=== PATIENT | female | born 1940 | race Caucasian/White ===

== ENCOUNTER 2021-07-09 01:44 | Emergency (ER) | END 2021-07-09 05:04 | LOC: ERS 01:44 | DX: E11.649 Type 2 diabetes mellitus with hypoglycemia without coma (principal); I12.9 Hypertensive chronic kidney disease with stage 1 through stage 4 chronic kidney disease, or unspecified chronic kidney disease; N18.30 Chronic kidney disease, stage 3 unspecified; E11.22 Type 2 diabetes mellitus with diabetic chronic kidney disease; E78.5 Hyperlipidemia, unspecified | CPT/HCPCS: 36416; 99285 ==

== ENCOUNTER 2021-07-09 18:36 | Observation (INO) | payer MEDICARE ==
[2021-07-09 19:28] LABS: #Eosinphils 0.2 thou/uL (0.0-0.7); #Monocytes 0.6 thou/uL (0.11-0.59); %Eosinophils 1.8 % (0.0-10.0); %Lymphocytes 9.5 % (21.0-51.0); %Monocytes 5.4 % (0.0-10.0); %Neutrophils 83.3 % (42.0-75.0); Hemoglobin 13.3 g/dL (12.0-16.0); Mean Corpuscular HGB CONC 33.7 g/dL (32.0-36.0); Mean Corpuscular Hemoglobin 29.4 pg (27.0-31.0); Mean Corpuscular Volume 87.4 fL (78.0-98.0); Mean Platelet Volume 9.2 fL (7.4-10.4); Platelet Count 294 thou/uL (130-400); RBC Distribution Width 13.5 % (11.5-14.5); Red Blood Cell (RBC) Count 4.51 mill/uL (4.20-5.40); White Blood Cell (WBC) Count 10.8 thou/uL (4.8-10.8)
[2021-07-09 19:46] LABS: ALT (SGPT) 10 U/L (8-55); AST (SGOT) 11 U/L (5-34); Albumin 2.4 g/dL (3.4-4.8); Alkaline Phosphatase 90 U/L (40-110); Anion Gap 11 mmol/L (10-20); BUN (Urea Nitrogen) 24 mg/dL (9.8-20.1); Bilirubin, Total 0.4 mg/dL (0.2-1.2); Calc. Creatinine Clearance 0 mL/min (70-130); Calcium 8.3 mg/dL (7.8-10.44); Carbon Dioxide 31 mmol/L (23-31); Chloride 100 mmol/L (98-107); Globulin 3.5 g/dL (2.4-3.5); Glucose 104 mg/dL (83-110); Potassium 3.2 mmol/L (3.5-5.1); Protein, Total 5.9 g/dL (5.8-8.1); Sodium 139 mmol/L (136-145)
[2021-07-09] MEDS ORDERED: Dextrose 50% Abboject 50 ML SYRINGE ONE (22:24)
[2021-07-09 22:33] LABS: Lactic Acid 0.9 mmol/L (0.5-2.2)
[2021-07-10 00:59] LABS: SARS-CoV-2 NAA Rapid Test DETECTED (NotDetected)
[2021-07-10] MEDS ORDERED: Ondansetron PF 4 MG/2 ML Vial IVP PRN (02:51)
[2021-07-10] MEDS ORDERED: HumaLOG 300 UNITS/3 ML VIAL SC PRN ×4 (02:51→12:17)
[2021-07-10] MEDS ORDERED: Ondansetron ODT 4 MG TAB PO PRN (02:51)
[2021-07-10] MEDS ORDERED: Dextrose 5% in Water 1,000 ML IV PRN ×2 (02:51→12:17)
[2021-07-10] MEDS ORDERED: Dextrose 50% Abboject 50 ML SYRINGE SLOW IVP PRN ×2 (02:51→12:17)
[2021-07-10] MEDS ORDERED: Acetaminophen 650 MG Suppository PR PRN (02:51)
[2021-07-10] MEDS ORDERED: Potassium Chloride 20 MEQ TAB PO SCH ×2 (04:15→10:00)
[2021-07-10] MEDS ORDERED: Dextrose 5% in Water 1,000 ML IV SCH (05:00)
[2021-07-10 05:23] LABS: #Eosinphils 0.2 thou/uL (0.0-0.7); #Lymphocytes 1.8 thou/uL (1.20-3.40); #Monocytes 0.6 thou/uL (0.11-0.59); %Basophils 0.5 % (0.0-1.0); %Eosinophils 2.4 % (0.0-10.0); %Lymphocytes 23.9 % (21.0-51.0); %Monocytes 8.4 % (0.0-10.0); %Neutrophils 64.8 % (42.0-75.0); Hemoglobin 13.3 g/dL (12.0-16.0); Mean Corpuscular HGB CONC 33.4 g/dL (32.0-36.0); Mean Corpuscular Hemoglobin 29.3 pg (27.0-31.0); Mean Corpuscular Volume 87.8 fL (78.0-98.0); Platelet Count 264 thou/uL (130-400); RBC Distribution Width 13.6 % (11.5-14.5); Red Blood Cell (RBC) Count 4.55 mill/uL (4.20-5.40); White Blood Cell (WBC) Count 7.7 thou/uL (4.8-10.8)
[2021-07-10] MEDS ORDERED: Activated Charcoal/Sorbitol 25 GM/120 ML TUBE ONE (05:44)
[2021-07-10] MEDS ORDERED: Potassium Chloride 20 MEQ TAB ONE (05:44)
[2021-07-10 06:37] LABS: Anion Gap 9 mmol/L (10-20); BUN (Urea Nitrogen) 24 mg/dL (9.8-20.1); Calc. Creatinine Clearance 0 mL/min (70-130); Calcium 8.2 mg/dL (7.8-10.44); Carbon Dioxide 30 mmol/L (23-31); Chloride 104 mmol/L (98-107); Glucose 118 mg/dL (83-110); Sodium 140 mmol/L (136-145)
[2021-07-10] MEDS ORDERED: Dextrose 50% Abboject 50 ML SYRINGE ONE (07:47)
[2021-07-10 08:37] LABS: Magnesium 1.8 mg/dL (1.6-2.6)
[2021-07-10] MEDS ORDERED: Potassium Chloride 20 MEQ in Premix Bag 1 BAG IVPB SCH (09:15)
[2021-07-10 09:47] VITALS: BMI 24.5
[2021-07-10] MEDS: Potassium Chloride 10 MEQ in Premix Bag 1 BAG IVPB SCH ×3 (10:36→12:03)
[2021-07-10] MEDS ORDERED: hydrALAZINE 20 MG/ML VIAL SLOW IVP PRN (12:16)
[2021-07-10] MEDS: Acetaminophen 325 MG TAB PO PRN (13:22)
[2021-07-10 13:23] LABS: Hemoglobin A1c 6.9 % (4.0-6.0)
[2021-07-10] MEDS ORDERED: Lorazepam 0.5 MG TAB PO PRN (13:33)
[2021-07-10] MEDS ORDERED: Aspirin 81 mg Enteric Coated Tablet PO SCH (13:45)
[2021-07-10] MEDS ORDERED: Ascorbic Acid 500 mg Chewable Tablet PO SCH (13:45)
[2021-07-10] MEDS ORDERED: FLUoxetine HCl 20 MG CAP PO SCH (14:00)
[2021-07-10] MEDS ORDERED: Carvedilol 6.25 MG TAB PO SCH (14:00)
[2021-07-10] MEDS ORDERED: Cholecalciferol (Vitamin D3) 400 UNITS TAB PO SCH (14:00)
[2021-07-10] MEDS ORDERED: Losartan 25 MG TAB PO SCH (14:00)
[2021-07-10] MEDS ORDERED: guaiFENesin ER 600 MG TAB PO SCH (14:00)
[2021-07-10] MEDS ORDERED: Zinc Sulfate 220 MG CAP PO SCH (14:00)
[2021-07-10] MEDS ORDERED: Furosemide 40 MG TAB PO SCH (14:00)
[2021-07-10] MEDS: rOPINIRole HCl 0.25 MG TAB PO SCH ×2 (15:25→20:02)
[2021-07-10] MEDS: guaiFENesin ER 600 MG TAB PO SCH (20:01)
[2021-07-10] MEDS: Carvedilol 6.25 MG TAB PO SCH (20:01)
[2021-07-10] MEDS: Losartan 25 MG TAB PO SCH (20:01)
[2021-07-10] MEDS: Ascorbic Acid 500 mg Chewable Tablet PO SCH (20:02)
[2021-07-10] MEDS ORDERED: Atorvastatin Calcium 10 MG TAB PO SCH (21:00)
[2021-07-10] MEDS ORDERED: Melatonin 3 MG TAB PO SCH (21:00)
[2021-07-10] MEDS ORDERED: Amino Acids/Protein Hydrolys [Pro-Stat 64 Liquid] 30 ML Packet PO SCH (21:00)
[2021-07-11 05:36] LABS: Anion Gap 8 mmol/L (10-20); BUN (Urea Nitrogen) 18 mg/dL (9.8-20.1); Calc. Creatinine Clearance 36 mL/min (70-130); Calcium 7.8 mg/dL (7.8-10.44); Carbon Dioxide 31 mmol/L (23-31); Chloride 104 mmol/L (98-107); Glucose 118 mg/dL (83-110); Potassium 4.2 mmol/L (3.5-5.1); Sodium 139 mmol/L (136-145)
[2021-07-11] MEDS ORDERED: Ergocalciferol 1.25 MG(50,000 UNITS) CAP PO SCH (09:00)
[2021-07-11] MEDS: Losartan 25 MG TAB PO SCH ×2 (10:22→11:30)
[2021-07-11] MEDS: Cholecalciferol (Vitamin D3) 400 UNITS TAB PO SCH ×2 (10:22→11:30)
[2021-07-11] MEDS: Ascorbic Acid 500 mg Chewable Tablet PO SCH ×2 (10:22→11:30)
[2021-07-11] MEDS: Aspirin 81 mg Enteric Coated Tablet PO SCH ×2 (10:23→11:30)
[2021-07-11] MEDS: Carvedilol 6.25 MG TAB PO SCH (10:23)
[2021-07-11] MEDS: FLUoxetine HCl 20 MG CAP PO SCH ×2 (10:24→11:30)
[2021-07-11] MEDS: Furosemide 40 MG TAB PO SCH ×2 (10:25→11:30)
[2021-07-11] MEDS: guaiFENesin ER 600 MG TAB PO SCH (10:25)
[2021-07-11] MEDS: rOPINIRole HCl 0.25 MG TAB PO SCH ×3 (10:26→15:19)
[2021-07-11] MEDS: Zinc Sulfate 220 MG CAP PO SCH ×2 (10:26→11:30)
[2021-07-11] MEDS: Acetaminophen 325 MG TAB PO PRN (15:19)
[2021-07-11 15:42] VITALS: BP 178/75; TEMP 98.9
== END 2021-07-11 18:40 ==
LOC: ERS 18:36 → ERHOLD 23:15 → 2SE 07-10 09:12 → 2SW 07-11 00:50
PROVIDERS: ADMIT Student in an Organized Health Care Education/Training Program; ATTEND Internal Medicine
DX: E11.649 Type 2 diabetes mellitus with hypoglycemia without coma (principal); U07.1 COVID-19; I12.9 Hypertensive chronic kidney disease with stage 1 through stage 4 chronic kidney disease, or unspecified chronic kidney disease; E11.22 Type 2 diabetes mellitus with diabetic chronic kidney disease; N18.30 Chronic kidney disease, stage 3 unspecified; E78.5 Hyperlipidemia, unspecified; E87.6 Hypokalemia; M51.36 Other intervertebral disc degeneration, lumbar region; Z79.4 Long term (current) use of insulin; Z79.82 Long term (current) use of aspirin; Z79.899 Other long term (current) drug therapy; Z88.1 Allergy status to other antibiotic agents
CPT/HCPCS: 71045; 80048 ×2; 80053; 82962 ×3; 83036; 83605; 83735; 84484; 85025 ×2; 93005; 94760; 96374; 99285; U0002; 36415; 36416; 96376; G0378; J1815; J3480; J7070

== ENCOUNTER 2022-01-26 13:26 | Inpatient (IN) | payer MEDICARE ==
[2022-01-26 14:04] LABS: #Eosinphils 0.4 thou/uL (0.0-0.7); #Lymphocytes 1.5 thou/uL (1.20-3.40); #Monocytes 0.4 thou/uL (0.11-0.59); #Neutrophils 6.5 thou/uL (1.40-6.50); %Basophils 0.2 % (0.0-1.0); %Eosinophils 4.3 % (0.0-10.0); %Lymphocytes 16.6 % (21.0-51.0); %Monocytes 4.9 % (0.0-10.0); Hemoglobin 13.3 g/dL (12.0-16.0); Mean Corpuscular HGB CONC 33.1 g/dL (32.0-36.0); Mean Corpuscular Hemoglobin 29.4 pg (27.0-31.0); Mean Corpuscular Volume 88.7 fL (78.0-98.0); Mean Platelet Volume 8.1 fL (7.4-10.4); Platelet Count 285 thou/uL (130-400); RBC Distribution Width 14.4 % (11.5-14.5); Red Blood Cell (RBC) Count 4.52 mill/uL (4.20-5.40); White Blood Cell (WBC) Count 8.8 thou/uL (4.8-10.8)
[2022-01-26 14:13] LABS: Bilirubin Negative (Negative); Blood, Urine Negative (Negative); Clarity Clear (Clear); Glucose, Urine (Dipstick) 30 mg/dL (Negative); Ketone, Urine Negative (Negative); Leukocyte Negative Leu/uL (Negative); Nitrite Negative (Negative); Protein, Urine (Dipstick) 300 mg/dL (Neg-Trace); RBC/HPF 0-3 HPF (0-3); Specific Gravity, Urine 1.013 (1.002-1.036); Squamous Epithelial 0-3 HPF (0-3); Urobilinogen Normal mg/dL (Less than 2); WBC/HPF 0-3 HPF (0-3); pH, Urine 6.5 (5.0-9.0)
[2022-01-26 14:14] LABS: Bacteria/HPF Rare-Few HPF (None Seen)
[2022-01-26 14:15] LABS: Prothrombin Time 13.3 sec (12.0-14.7)
[2022-01-26] MEDS ORDERED: Cefepime 2 GM VIAL ONE (15:25)
[2022-01-26] MEDS ORDERED: Vancomycin 1 GM/200 ML BAG ONE (16:05)
[2022-01-26 16:06] LABS: ALT (SGPT) 13 U/L (8-55); AST (SGOT) 18 U/L (5-34); Albumin 2.6 g/dL (3.4-4.8); Alkaline Phosphatase 64 U/L (40-110); Anion Gap 11 mmol/L (10-20); BUN (Urea Nitrogen) 17 mg/dL (9.8-20.1); Bilirubin, Total 0.4 mg/dL (0.2-1.2); Calc. Creatinine Clearance 0 mL/min (70-130); Carbon Dioxide 29 mmol/L (23-31); Chloride 105 mmol/L (98-107); Estimated GFR 42; Globulin 2.9 g/dL (2.4-3.5); Glucose 136 mg/dL (83-110); Protein, Total 5.5 g/dL (5.8-8.1); Sodium 142 mmol/L (136-145)
[2022-01-26 16:07] LABS: Potassium 2.9 mmol/L (3.5-5.1)
[2022-01-26] MEDS ORDERED: Dextrose 5% in Water 1,000 ML IV PRN (16:34)
[2022-01-26] MEDS ORDERED: Dextrose 50% Abboject 50 ML SYRINGE SLOW IVP PRN (16:34)
[2022-01-26] MEDS ORDERED: Ondansetron ODT 4 MG TAB PO PRN (16:35)
[2022-01-26] MEDS ORDERED: Senokot S 8.6-50 MG TAB PO PRN (16:35)
[2022-01-26] MEDS ORDERED: Ondansetron PF 4 MG/2 ML Vial IVP PRN (16:35)
[2022-01-26] MEDS ORDERED: Acetaminophen 325 MG TAB PO PRN (16:35)
[2022-01-26 17:25] VITALS: BMI 25.6
[2022-01-26 17:30] LABS: Magnesium 1.8 mg/dL (1.6-2.6)
[2022-01-26] MEDS ORDERED: Potassium Chloride 20 MEQ TAB PO ONE (17:41)
[2022-01-26 18:55] LABS: SARS-CoV-2 NAA Rapid Test Not Detected (NotDetected)
[2022-01-26 18:56] LABS: Potassium 2.9 mmol/L (3.5-5.1)
[2022-01-26] MEDS: Sodium Chloride 0.9% 1,000 ML IV SCH (19:04)
[2022-01-26] MEDS: Potassium Chloride 20 MEQ in Premix Bag 1 BAG IVPB SCH ×2 (19:05→20:09)
[2022-01-26 19:15] LABS: Hemoglobin A1c 7.9 % (4.0-6.0)
[2022-01-26] MEDS ORDERED: Potassium Chloride 20 MEQ TAB PO SCH (20:15)
[2022-01-26] MEDS ORDERED: Enoxaparin Sodium 40 MG/0.4 ML SYRINGE SC SCH (21:00)
[2022-01-27] MEDS: Sodium Chloride 0.9% 1,000 ML IV SCH (06:12)
[2022-01-27 06:30] LABS: #Eosinphils 0.3 thou/uL (0.0-0.7); #Lymphocytes 1.6 thou/uL (1.20-3.40); #Monocytes 0.6 thou/uL (0.11-0.59); #Neutrophils 4.7 thou/uL (1.40-6.50); %Basophils 0.6 % (0.0-1.0); %Eosinophils 3.5 % (0.0-10.0); %Lymphocytes 21.5 % (21.0-51.0); %Monocytes 8.9 % (0.0-10.0); %Neutrophils 65.5 % (42.0-75.0); Hemoglobin 11.4 g/dL (12.0-16.0); Mean Corpuscular HGB CONC 32.9 g/dL (32.0-36.0); Mean Corpuscular Hemoglobin 29.5 pg (27.0-31.0); Mean Corpuscular Volume 89.6 fL (78.0-98.0); Mean Platelet Volume 8.3 fL (7.4-10.4); Platelet Count 253 thou/uL (130-400); RBC Distribution Width 14.4 % (11.5-14.5); Red Blood Cell (RBC) Count 3.87 mill/uL (4.20-5.40); White Blood Cell (WBC) Count 7.2 thou/uL (4.8-10.8)
[2022-01-27 07:00] LABS: Anion Gap 11 mmol/L (10-20); BUN (Urea Nitrogen) 22 mg/dL (9.8-20.1); Calc. Creatinine Clearance 32 mL/min (70-130); Calcium 7.5 mg/dL (7.8-10.44); Carbon Dioxide 24 mmol/L (23-31); Chloride 105 mmol/L (98-107); Estimated GFR 38; Glucose 273 mg/dL (83-110); Potassium 3.9 mmol/L (3.5-5.1); Sodium 136 mmol/L (136-145)
[2022-01-27] MEDS ORDERED: Lorazepam 0.5 MG TAB PO PRN (09:18)
[2022-01-27] MEDS ORDERED: Dextrose 50% Abboject 50 ML SYRINGE SLOW IVP PRN (09:20)
[2022-01-27] MEDS ORDERED: Dextrose 5% in Water 1,000 ML IV PRN (09:20)
[2022-01-27] MEDS: rOPINIRole HCl 0.25 MG TAB PO SCH ×2 (15:20→21:18)
[2022-01-27] MEDS: Carvedilol 6.25 MG TAB PO SCH (16:54)
[2022-01-27] MEDS: HumaLOG 300 UNITS/3 ML VIAL SC PRN (17:17)
[2022-01-27] MEDS ORDERED: Melatonin 3 MG TAB PO SCH (21:00)
[2022-01-27] MEDS ORDERED: Atorvastatin Calcium 10 MG TAB PO SCH (21:00)
[2022-01-27] MEDS ORDERED: Enoxaparin Sodium 30 MG/0.3 ML SYRINGE SC SCH (21:00)
[2022-01-27] MEDS ORDERED: Aripiprazole 10 MG TAB PO SCH (21:00)
[2022-01-27] MEDS: Losartan 25 MG TAB PO SCH (21:20)
[2022-01-28 06:37] LABS: Anion Gap 11 mmol/L (10-20); BUN (Urea Nitrogen) 16 mg/dL (9.8-20.1); Calc. Creatinine Clearance 40 mL/min (70-130); Calcium 7.8 mg/dL (7.8-10.44); Carbon Dioxide 25 mmol/L (23-31); Chloride 107 mmol/L (98-107); Estimated GFR 50; Glucose 210 mg/dL (83-110); Potassium 3.7 mmol/L (3.5-5.1); Sodium 139 mmol/L (136-145)
[2022-01-28] MEDS: Carvedilol 6.25 MG TAB PO SCH (08:08)
[2022-01-28] MEDS: rOPINIRole HCl 0.25 MG TAB PO SCH ×2 (08:08→14:26)
[2022-01-28] MEDS: Losartan 25 MG TAB PO SCH (08:08)
[2022-01-28 08:11] VITALS: TEMP 97.6
[2022-01-28 08:12] VITALS: BP 125/65
[2022-01-28] MEDS ORDERED: hydrALAZINE 20 MG/ML VIAL SLOW IVP PRN (08:34)
[2022-01-28] MEDS ORDERED: Amlodipine 10 MG TAB PO SCH (09:00)
[2022-01-28] MEDS ORDERED: FLUoxetine HCl 20 MG CAP PO SCH (09:00)
[2022-01-28] MEDS ORDERED: cefTRIAXone\\ROCEPHIN 1 GM in Sodium Chloride 0.9% 100 ML IVPB SCH (10:00)
[2022-01-28] MEDS: HumaLOG 300 UNITS/3 ML VIAL SC PRN (11:23)
== END 2022-01-28 15:54 | DRG 871 ==
LOC: ERS 13:26 → T4-B 17:15 → OBSVTOIN 01-27 14:53
PROVIDERS: ADMIT Family Medicine; ATTEND Internal Medicine
DX: A41.81 Sepsis due to Enterococcus (principal); G93.41 Metabolic encephalopathy; N39.0 Urinary tract infection, site not specified; N17.9 Acute kidney failure, unspecified; E78.5 Hyperlipidemia, unspecified; F32.A Depression, unspecified; R68.0 Hypothermia, not associated with low environmental temperature; N18.30 Chronic kidney disease, stage 3 unspecified; E87.6 Hypokalemia; Z66 Do not resuscitate; I12.9 Hypertensive chronic kidney disease with stage 1 through stage 4 chronic kidney disease, or unspecified chronic kidney disease; F41.9 Anxiety disorder, unspecified; E11.22 Type 2 diabetes mellitus with diabetic chronic kidney disease; E11.649 Type 2 diabetes mellitus with hypoglycemia without coma; Z20.822 Contact with and (suspected) exposure to COVID-19; Z79.899 Other long term (current) drug therapy; Z79.82 Long term (current) use of aspirin
CPT/HCPCS: 36415; 36416; 71045; 80048; 81003; 81015; 83036; 83605; 83735; 84484; 85025; 85610; 85730; 87040; 87077; 87086; 87186; 93005; 94760; 96365; 96367; 96372; G0378; J0692; J1650; J1956; J3370; J3480; J7050

== ENCOUNTER 2022-02-20 09:47 | Emergency (ER) | payer MEDICARE | END 2022-02-20 11:18 | disposition home or self-care (01) | LOC: ERS 09:47 | DX: E11.649 Type 2 diabetes mellitus with hypoglycemia without coma (principal); E11.22 Type 2 diabetes mellitus with diabetic chronic kidney disease; I12.9 Hypertensive chronic kidney disease with stage 1 through stage 4 chronic kidney disease, or unspecified chronic kidney disease; N18.30 Chronic kidney disease, stage 3 unspecified; E78.5 Hyperlipidemia, unspecified; Z79.82 Long term (current) use of aspirin; Z79.899 Other long term (current) drug therapy | CPT/HCPCS: 36416; 99285 ==